=== PATIENT | female | born 1960 | race Caucasian/White ===

== ENCOUNTER 2019-08-26 19:05 | Emergency (ER) | payer BC ==
[2019-08-26] MEDS ORDERED: HYDROmorphone 1 MG/ML Syringe IVPUSH ONE ×2 (19:36→20:41)
[2019-08-26] MEDS ORDERED: Ondansetron 4 MG/2 ML SDV IVPUSH ONE (19:36)
[2019-08-26] MEDS ORDERED: EPINEPHrine/Lidocaine/Tetracai 3 ML ML TOP ONE (19:36)
--- NOTE | 2019-08-26 19:43 | EDM.PDOC ---
ED HPI GENERAL MEDICAL PROBLEM - General Chief Complaint: Head Injury Stated Complaint: HEAD INJURY FALL Time Seen by Provider: 08/26/19 19:24 Source of Information: Reports: Patient, Family () History Limitations: Reports: No Limitations - History of Present Illness INITIAL COMMENTS - FREE TEXT/NARRATIVE: Mrs. Parikh is a 58-year-old woman who states that she tripped and fell down 9 wood steps into her farmhouse basement around 18:30 this evening. She presents with a laceration to the top right of her head, pain to her left shoulder/ proximal humerus, and pain to her anterolateral lateral left knee. She denies suffering loss of consciousness. The patient's PCP is Dr. Caron Quinn, in [place]. Her Orthopedic Surgeon is Dr. Herve Schmid. Treatments EVENTS ASSOCIATE: Reports: Other (see below) Other Treatments EVENTS ASSOCIATE: none Head Pain Score (Numeric/FACES): 6 Left Upper Arm Pain Score (Numeric/FACES): 9 - Related Data Allergies Allergy/AdvReac Type Severity Reaction Status Date / Time tetanus and diphtheria Allergy Redness Verified 08/26/19 19:24 toxoids Home Meds: Home Meds Dulaglutide [Trulicity] 1 injection INJECT WEEKLY 08/26/19 [History] Fish Oil/[place]-3 Fatty Acids [Fish Oil 1,000 MG] 1 gram PO DAILY 08/26/19 [ History] Furosemide [Lasix] 20 mg PO MOWEFR 08/26/19 [History] L.acidoph,Paracasei, B.lactis [Probiotic] 1 cap PO DAILY 08/26/19 [History] Losartan/Hydrochlorothiazide [Losartan-HCTZ 100-12.5 MG] 1 tab PO DAILY [History] Vit A/Vit C/Vit E/Zinc/Copper [Preservision] 2 tab PO DAILY 08/26/19 [History] Past Medical History Cardiovascular History: Reports: Hypertension Endocrine/Metabolic History: Reports: Diabetes, Type II, Obesity/BMI 30+ - Past Surgical History HEENT Surgical History: Reports: Tonsillectomy GI Surgical History: Reports: Cholecystectomy (1991) Female Surgical History: Reports: Breast Reduction, Section (x 3), Hysterectomy (complete) Social & Family History - Tobacco Use Smoking Status *Q: Never Smoker - Alcohol Use Alcohol Use History: Yes Alcohol Use Frequency: Rarely - Recreational Drug Use Recreational Drug Use: No - Living Situation & Occupation Living situation: Reports: , with Spouse, with Family (2 kids) Occupation: Employed (RN at [employer]) ED ROS GENERAL - Review of Systems Review Of Systems: ROS reveals no pertinent complaints other than HPI. ED EXAM, HEAD INJURY - Physical Exam Exam: See Below Exam Limited By: No Limitations General Appearance: Alert, WD/WN, Mild Distress (appears uncomfortable) Head: Normocephalic, Scalp Lacerations (75 cm irregular laceration to the upper anterior right scalp) Eyes: Bilateral Eye: EOMI, Normal Inspection, PERRL Ears: Normal External Exam, Normal Canal, Hearing Grossly Normal, Normal TMs Nose: Normal Inspection, Normal Mucousa, No Blood Throat/Mouth: Normal Inspection, Normal Lips, Normal Teeth, Normal Gums, Normal Oropharynx, Normal Voice, No Airway Compromise Neck: Non-Tender, Full Range of Motion, Normal Alignment, Normal Inspection Respiratory: No Respiratory Distress, Lungs Clear, Normal Breath Sounds, No Accessory Muscle Use, Chest Non-Tender Cardiovascular: Normal Peripheral Pulses, Regular Rate, Rhythm, No Gallop, No JVD, No Murmur, No Rub GI/Abdominal Exam: Normal Bowel Sounds, Soft, Non-Tender, No Organomegaly, No Distention, No Abnormal Bruit, No Mass (Female) Exam: Deferred Rectal (Female) Exam: Deferred Back Exam: Full Range of Motion, Normal Inspection, NT Extremities: Normal Inspection, Normal Range of Motion, Non-Tender, No Pedal Edema, Normal Capillary Refill, Other (No visible abnormality to the patient's left upper extremity, such as swelling, erythema, ecchymosis, or abrasion, however, there is point tenderness to palpation of the anterolateral left shoulder, and pain is induced in this area with attempted left shoulder ROM. There is a small abrasion and ecchymosis to the anterior aspect of the left knee , and there is tenderness in this area, as well as to the lateral aspect of the knee, although there is no visible abnormality to that area, such as swelling, erythema, ecchymosis, or abrasion. Anterior posterior drawer signs are negative , as are stressing the medial and lateral collateral ligaments. There appears to be normal ROM to the knee. Neurovascular status of all extremities appears to be intact.) Neurologic: watch adjuster II-XII nml As Tested, No Motor/Sensory Deficits, Alert, Oriented x 3 Skin: Normal Color, Warm/Dry ED LACERATION/WOUND & ANN MARIE PROC - Laceration/Wound Repair Right Head Lac/wound length in cm: 7.5 Appearance: Irregular Distal NVT: Neuro & Vascular Intact, No Tendon Injury Anesthetic Type: Topical (LET) Skin Prep: Saline Exploration/Debridement/Repair: Wound Explored, In a Bloodless Field, Explored to Base, No Foreign Material Found Closed with: Marilin # of Sutures: 16 Drain Placement: No Sterile Dressing Applied: None Tetanus Status Addressed: Yes Complications: No Course - Vital Signs Last Recorded V/S: Last Vital Signs Temp 36.0 C 08/26/19 19:22 Pulse 70 08/26/19 19:22 Resp 20 08/26/19 19:22 BP 130/85 08/26/19 19:22 Pulse Ox 98 08/26/19 19:22 - Orders/Labs/Meds Meds: Medications Discontinued Medications Generic Name Dose Route Start Last Admin Trade Name Maurice PRJose Guadalupe Reason Stop Dose Admin Hydromorphone HCl 1 mg 08/26/19 19:36 08/26/19 19:52 Dilaudid IVPUSH 08/26/19 19:37 1 mg ONETIME ONE Administration Hydromorphone HCl 1 mg 08/26/19 20:41 08/26/19 20:46 Dilaudid IVPUSH 08/26/19 20:42 1 mg ONETIME ONE Administration Lidocaine/Tetracaine 3 ml 08/26/19 19:36 08/26/19 19:52 Let Soln TOP 08/26/19 19:37 3 ml ONETIME ONE Administration Ondansetron HCl 4 mg 08/26/19 19:36 08/26/19 19:52 Zofran IVPUSH 08/26/19 19:37 4 mg ONETIME ONE Administration - Re-Assessments/Exams Free Text/Narrative Re-Assessment/Exam: 08/26/19 19:37 As per the HPI, the patient fell down 9 wood steps about an hour ago, sustaining a laceration to her upper right scalp, pain to her left shoulder area radiating down to her elbow, and anterolateral left knee. I have ordered LET to the scalp which at first blush appears will require marilin. I have also ordered x-rays of the left shoulder and humerus, and to the left knee. In the meantime, the patient will be treated with IV Dilaudid and IV Zofran. The patient appears to be alert, and her neurologic examination is completely normal. I do not see an indication for a CT scan of the head at this time. 08/26/19 20:30 3-view radiographs of the left shoulder appear to be grossly normal. No fracture or dislocation identified. Formal read per the Radiologist pending. 2-view radiographs of the left humerus appear to be grossly normal. No fracture or dislocation identified. Formal read per the Radiologist pending. 3-view radiographs of the left knee appear to be grossly unremarkable. No fracture or dislocation identified. There is a well-rounded opacity posterior to the knee joint that appears to be old. Formal read per the Radiologist pending. I will order a left arm sling. 08/26/19 20:52 Following application of topical LET, the laceration to the top right of the patient's scalp was stapled with 16 marilin. The patient tolerated the procedure well. I will discharge the patient home with a prescription for Minot via [facility] that she should take in addition to ibuprofen. She is to wear her arm brace and follow-up with Dr. Schmid at [facility] in [place]. The marilin should be ready for removal on or about 09/03/2019. Departure - Departure Time of Disposition: 20:55 Disposition: Home, Self-Care 01 Condition: Good Clinical Impression: Fall down stairs, Left shoulder pain, Scalp laceration, Left knee pain - Discharge Information *PRESCRIPTION DRUG MONITORING PROGRAM REVIEWED*: Not Applicable *COPY OF PRESCRIPTION DRUG MONITORING REPORT IN PATIENT JOSE L: Not Applicable Instructions: Laceration Care, Adult, Laceration Care, Adult, [id number], Knee Pain, Adult, [id number], Joint Pain, [id number] Referrals: Caron Quinn MD [Ordering Only Provider] - Herve Schmid MD [Consulting Physician] - Forms: ED Department Discharge Additional Instructions: You were seen in the emergency room after falling [place] Workup in the ER included x-rays of your left shoulder, your left humerus, and your left knee. All of your x-rays returned unremarkable. No broken bones or dislocations were found. Your left arm has been placed into an arm sling. We recommend that you wear the sling during the day until you can follow-up with your Orthopedic Surgeon, Dr. Herve Schmid. Take [id number] ibuprofen, 3-4 tablets (600-800 mg) every 8 hours, with food, as needed for discomfort. In addition to ibuprofen, you may also take the opioid pain reliever Min[place], 1 to 2 tablets up to every 6 hours, as needed for pain not relieved by ibuprofen. If you take Minot, do not drive for 12 hours afterwards. Minot may cause constipation, so consider taking a stool softener. You received 16 marilin to the laceration to your right scalp. Keep the wound clean with ordinary shampoo and water when you bathe. Do not put product in your hair. The marilin should be ready for removal by 09/03/2019. The marilin can be removed at a walk-in clinic, by a nurse in your doctor's office, or in an ER. If any other problems, please do not hesitate to return to the ER.
--- NOTE | 2019-08-27 07:05 | CR ---
Left humerus: Two views of the left humerus were obtained. Comparison: No previous humerus exam. Lucent line is identified within the surgical neck compatible with nondisplaced surgical neck fracture. This is noted better on shoulder study. No additional fracture or other bony abnormality is appreciated. Impression: 1. Nondisplaced surgical neck fracture. 2. Left humerus study is otherwise unremarkable. Diagnostic code #3
--- NOTE | 2019-08-27 07:05 | CR ---
Left knee: AP, lateral and sunrise patellar views of the left knee were obtained. Comparison: No previous knee exam. Slight medial joint space narrowing is seen. Lateral joint space is preserved. No joint effusion is seen. No fracture or other bony abnormality is seen. Impression: 1. Slight medial joint space narrowing is seen. 2. Nothing acute is appreciated on left knee exam. Diagnostic code #2
--- NOTE | 2019-08-27 07:05 | CR ---
Left shoulder: Three views of the left shoulder were obtained. Comparison: No prior shoulder study. Nondisplaced fracture noted through the surgical neck. Minimal degenerative change is noted within the glenoid. Slight inferior projection is noted off the acromion process. Impression: 1. Nondisplaced surgical neck fracture. 2. Slight degenerative change and inferior projection off the acromion process. Diagnostic code #3
== END 2019-08-26 21:16 | disposition home or self-care (01) ==
LOC: JD.ED 19:05
DX: S01.01XA Laceration without foreign body of scalp, initial encounter (principal); M25.512 Pain in left shoulder; M25.562 Pain in left knee; I10 Essential (primary) hypertension; E11.9 Type 2 diabetes mellitus without complications; E66.9 Obesity, unspecified; Z68.43 Body mass index [BMI] 50.0-59.9, adult; Z79.899 Other long term (current) drug therapy; Z88.7 Allergy status to serum and vaccine; W10.9XXA Fall (on) (from) unspecified stairs and steps, initial encounter; Y92.018 Other place in single-family (private) house as the place of occurrence of the external cause
CPT/HCPCS: 12002; 73030; 73060; 73562; 96374; 96375; 96376; 99283; J1170; J2405